=== PATIENT | female | born 2005 | race Caucasian/White ===

== ENCOUNTER 2023-02-18 16:42 | Emergency (ER) | payer OTHER ==
[~2023-02-18] VITALS: Ht 154.9 cm; Wt 60.8 kg
[2023-02-18] MEDS ORDERED: ETON1VAG7 PV (17:17)
[2023-02-18 18:22] LABS: BASO % 0.4 % (0.0-1.0); EOS # 0.2 10^3/uL (0.0-0.5); EOS % 2.1 % (0.0-3.0); HEMATOCRIT 35.7 % (36.0-47.0); HEMOGLOBIN 12.5 g/dl (12.0-15.5); LYMPH # 3.5 10^3/uL (1.5-5.0); LYMPH % 34.1 % (24.0-44.0); MEAN CORPUSCULAR HEMOGLOBIN 29.5 pg (27.0-33.0); MEAN CORPUSCULAR VOLUME 84.2 fl (80.0-96.0); MONO # 0.7 10^3/uL (0.0-0.8); MONO % 6.8 % (2.0-8.0); NEUTROPHILS # 5.9 10^3/uL (1.5-8.5); NEUTROPHILS % 56.4 % (36.0-66.0); PLATELET COUNT, AUTOMATED 263 10^3/uL (150-450); RED BLOOD COUNT 4.24 10^6/uL (4.00-5.40); WHITE BLOOD COUNT 10.4 10^3/uL (4.0-10.0)
[2023-02-18 18:33] LABS: BLOOD UREA NITROGEN 10 MG/DL (9-23); CALCIUM LEVEL 9.1 MG/DL (8.5-10.1); CARBON DIOXIDE LEVEL 26 MMOL/L (20-31); CHLORIDE LEVEL 101 MMOL/L (98-107); CK-MB VALUE MASS < 1.0 NG/ML (<3.6); CPK CREATINE PHOSPHOKINASE 60 U/L (34-145); CREATININE FOR GFR 0.62 MG/DL (0.55-1.30); GLUCOSE, FASTING 89 MG/DL (60-100); MB/CK RELATIVE INDEX 1.66 (< OR =4); POTASSIUM SERUM 4.2 MMOL/L (3.5-5.1); SODIUM LEVEL 136 MMOL/L (136-145)
[2023-02-18 18:38] LABS: HCG, SERUM QUALITATIVE NEGATIVE (NEGATIVE)
[2023-02-18] MEDS ORDERED: NS 1,000 ML IV ONE (18:55)
[2023-02-18] MEDS ORDERED: methylPREDNISolone 125MG 2ML VIAL IV ONE (18:55)
[2023-02-18] MEDS ORDERED: METOCLOPRAMIDE INJ 10MG/2ML VIAL IV ONE (18:55)
[2023-02-18] MEDS ORDERED: ISOVUE-370 76% 100ML VIAL As Ordered ONE (18:57)
[2023-02-18 20:00] VITALS: BP 118/62; TEMP 98; O2SAT 100
[2023-02-18] MEDS ORDERED: KETOROLAC 30 MG/ML 1ML VIAL IV ONE (20:00)
== END 2023-02-18 20:33 | disposition home or self-care (01) ==
LOC: M ED 16:42
DX: R07.9 Chest pain, unspecified (principal); R51.9 Headache, unspecified
CPT/HCPCS: 36415; 70450; 70496; 71046; 80048; 82550; 82553; 84484; 84703; 85025; 93005; 96374; 96375; 99284; J1885; J2765; J2930; Q9967

== ENCOUNTER → 2025-03-20 | Outpatient (CLI) | payer OTHER ==
[~2025-03-20] MED LIST: ETON1VAG7 PV
== END ==
LOC: M PLAIMG 09:15
DX: M54.50 Low back pain, unspecified (principal)